=== PATIENT | male | born 1990 | race Two or more races ===

== ENCOUNTER 2017-04-03 09:52 | Emergency (ER) | payer MEDICAID ==
[2017-04-03 10:07] VITALS: BP 167/92
[2017-04-03] MEDS ORDERED: PROPARACAINE 0.5% OPHTH DROPS 15 ML ONE (10:47)
[2017-04-03] MEDS ORDERED: ERYTHROMYCIN OPHTH OINT 1 GM TUBE ONE (11:00)
--- NOTE | 2017-04-03 11:05 | ED Physician Documentation ---
PD HPI OPHTHO - Stated complaint Stated Complaint: RT EYE PX - Chief complaint Chief Complaint: Heent - History obtained from History obtained from: Patient - History of Present Illness Timing - onset: Yesterday Timing - details: Still present Location: Right Associated symptoms: Redness, Swelling Contributing factors: FB Similar symptoms before: Has not had sx before - Additional information Additional information: The patient is a 27-year-old male who presents with pain in his right eye. He was doing yard work yesterday when a tree branch hit him in the right eye. His pain started at that time. When he awoke this morning his upper eyelid was swollen. He denies decrease in visual acuity. He does not wear corrective lenses, although he did in his youth. Review of Systems Constitutional: denies: Fever Eyes: reports: Irritation Ears: denies: Ear pain Nose: denies: Congestion Throat: denies: Sore throat Cardiac: denies: Chest pain / pressure Respiratory: denies: Dyspnea, Cough GI: denies: Abdominal Pain, Nausea, Vomiting : denies: Dysuria Skin: denies: Rash Musculoskeletal: denies: Neck pain, Extremity pain Neurologic: denies: Focal weakness, Numbness, Headache PD PAST MEDICAL HISTORY - Past Medical History Respiratory: Asthma Endocrine/Autoimmune: None GI: None Psych: ADD/ADHD - Past Surgical History Past Surgical History: No - Present Medications Home Medications: Ambulatory Orders Medication Instructions Recorded Confirmed Albuterol [Ventolin Hfa] 2 puffs INH Q4H PRN #2 inhaler 05/31/14 01/10/15 Ibuprofen [Motrin] 400 mg PO Q6H PRN #30 tablet 01/10/15 - Allergies Allergies/Adverse Reactions: Allergies Allergy/AdvReac Type Severity Reaction Status Date / Time No Known Drug Allergies Allergy Verified 05/31/14 12:53 - Social History Does the pt smoke?: Yes Smoking Status: Current every day smoker Does the pt drink ETOH?: No Does the pt have substance abuse?: Yes PD ED PE NORMAL - Vitals Vital signs reviewed: Yes (Initially hypertensive.) - General General: Alert and oriented X 3, Well developed/nourished, Other (Poor hygiene.) - HEENT HEENT: Atraumatic, PERRL, EOMI, Pharynx benign, Other (Funduscopic exam reveals sharp disc margins. Fluorescein stain and slit lamp exam of the right eye reveals superficial corneal abrasion. No foreign body is detected. The upper lid was everted and no foreign body detected.) - Cardiac Cardiac: RRR - Respiratory Respiratory: No respiratory distress PD ED PE EXPANDED - Eyes Eyes: Visual acuity - see nn, PERRL, Normal accommodation, EOMI, Right eye, Normal eyelids, No eyelid FB (everted), Corneal abrasion, Fluorescein uptake, Anterior chambers clear, Normal fundi Results - Vitals Vitals: Oxygen O2 Source Room air PD MEDICAL DECISION MAKING - ED course Complexity details: considered differential, d/w patient ED course: The patient's presentation is significant for right corneal abrasion, which was seen on slit lamp examination. There was no ocular foreign body detected. Treatment in the emergency department included administration of erythromycin ophthalmic ointment in the right eye. The remainder of the antibiotic ointment tube was dispensed with the patient. I discussed with him the expected course of healing, as well as potentially worrisome signs or symptoms that should prompt reevaluation in the emergency department. Departure - Departure Disposition: 01 Home, Self Care Clinical Impression: Cornea abrasion Qualifiers: Encounter type: initial encounter Laterality: right Qualified Code(s): S05.01XA - Injury of conjunctiva and corneal abrasion without foreign body, right eye, initial encounter Condition: Stable Instructions: ED Eye Injury Corneal Abrasion Follow-Up: [facility] [Provider Group] Comments: Use erythromycin ophthalmic ointment in your right eye 4 times daily today and tomorrow. You can use ibuprofen, up to 800 mg 3 times daily, if needed for discomfort. Followup with the planner, or return to the emergency department if not improving within 2 days, or if getting worse. Discharge Date/Time: 04/03/17 11:11
== END 2017-04-03 11:11 | disposition home or self-care (01) ==
LOC: ED 09:52
DX: S05.01XA Injury of conjunctiva and corneal abrasion without foreign body, right eye, initial encounter (principal); W22.8XXA Striking against or struck by other objects, initial encounter; Y93.H9 Activity, other involving exterior property and land maintenance, building and construction; F17.200 Nicotine dependence, unspecified, uncomplicated
CPT/HCPCS: 99283; J3490

== ENCOUNTER 2017-07-21 08:57 | Emergency (ER) | payer MEDICAID ==
[2017-07-21] MEDS ORDERED: DEXAMETHASONE 10 MG/ML VIAL PO STA (09:40)
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
[2017-07-21] MEDS ORDERED: DEXAMETHASONE 10 MG/ML VIAL ONE (09:52)
[2017-07-21 10:18] VITALS: BP 164/74
== END 2017-07-21 10:17 | disposition home or self-care (01) ==
LOC: ED 08:57
DX: J45.909 Unspecified asthma, uncomplicated (principal); R03.0 Elevated blood-pressure reading, without diagnosis of hypertension; F17.200 Nicotine dependence, unspecified, uncomplicated
CPT/HCPCS: 99283; 99284

== ENCOUNTER 2018-01-30 16:46 | Outpatient (CLI) | payer OTHER, MEDICAID | END 2018-01-30 16:47 | disposition home or self-care (01) | LOC: LAB 16:46 | PROVIDERS: ATTEND Pathology Blood Banking & Transfusion Medicine | DX: Z01.89 Encounter for other specified special examinations (principal) | CPT/HCPCS: 36415 ==

== ENCOUNTER 2018-05-13 07:46 | Outpatient (CLI) | payer MEDICAID ==
[2018-05-13 12:37] LABS: ALBUMIN 4.1 g/dL (3.2-5.5); ALBUMIN/GLOBULIN RATIO 1.2 (1.0-2.2); ALKALINE PHOSPHATASE 59 IU/L (42-121); ALT ALANINE AMINOTRANSFERASE 18 IU/L (10-60); AST ASPARTATE AMINOTRANSFERASE 26 IU/L (10-42); BILIRUBIN,TOTAL 0.7 mg/dL (0.2-1.0); BUN - BLOOD UREA NITROGEN 12 mg/dL (6-20); CALCIUM 9.1 mg/dL (8.5-10.3); CARBON DIOXIDE - CO2 28 mmol/L (21-32); CHLORIDE 103 mmol/L (101-111); CHOL/HDL RATIO 3.2 (<5.0); CHOLESTEROL 195 mg/dL; GFR - MDRD 88 (>89); GLUCOSE 105 mg/dL (70-100); HDL CHOLESTEROL 61 mg/dL; LDL CHOLESTEROL,CALCULATED 125 mg/dL; SODIUM 139 mmol/L (135-145); TOTAL PROTEIN 7.4 g/dL (6.7-8.2); VLDL CHOLESTEROL 9 mg/dL
[2018-05-13 12:41] LABS: BASOPHILS # (AUTO) 0.1 10^3/uL (0.0-0.1); BASOPHILS % (AUTO) 0.8 %; EOSINOPHILS # (AUTO) 0.4 10^3/uL (0.0-0.7); EOSINOPHILS % (AUTO) 4.9 %; HGB - HEMOGLOBIN 14.9 g/dL (14.0-18.0); LYMPHOCYTES # (AUTO) 2.3 10^3/uL (1.5-3.5); LYMPHOCYTES % (AUTO) 28.3 %; MEAN CORPUSCULAR HEMOGLOBIN 31.1 pg (27.0-31.0); MEAN CORPUSCULAR HGB CONC 33.5 g/dL (32.0-36.0); MONOCYTES # (AUTO) 0.8 10^3/uL (0.0-1.0); MONOCYTES % (AUTO) 10.1 %; NEUTROPHILS # (AUTO) 4.5 10^3/uL (1.5-6.6); NEUTROPHILS % (AUTO) 55.9 %; PLT - PLATELET COUNT 231 10^3/uL (130-450); RED BLOOD COUNT 4.79 10^6/uL (4.70-6.10); RED CELL DISTRIBUTION WIDTH 13.9 % (12.0-15.0)
[2018-05-13 13:25] LABS: PLATELET ESTIMATE, MANUAL NORMAL (130-450,000) (NORMAL); PLATELET MORPHOLOGY NORMAL APPEARANCE (NORMAL)
== END 2018-05-13 07:47 | disposition home or self-care (01) ==
LOC: LAB.N 07:46
PROVIDERS: ATTEND Nurse Practitioner Gerontology
DX: Z13.9 Encounter for screening, unspecified (principal)
CPT/HCPCS: 36415; 80053; 80061; 83721; 84443; 85025